=== PATIENT | male | born 1950 | race Caucasian/White ===

== ENCOUNTER 2019-10-09 08:50 | Emergency (ER) | payer MEDICARE, OTHER ==
[~2019-10-09] VITALS: Ht 180.3 cm; Wt 85.8 kg
--- NOTE | 2019-10-09 09:18 | EKG ---
[address] [address] Test Date: 2019-10-09 Test Time: 09:11:38 Pat Name: MO CARRINGTON Department: Room: Gender: M Line Fisher: : 1950 Requested By: MIKALA LUCAS Order Number: [id number] Reading MD: Cameron Leonardo MD Measurements Intervals [place] Rate: 80 P: 70 MN: 194 QRS: 95 QRSD: 108 T: 49 QT: 378 QTc: 440 Interpretive Statements SINUS RHYTHM VENTRICULAR PREMATURE COMPLEX(ES) Electronically Signed On 10-09-2019 9:50:44 CDT by Cameron Leonardo MD
--- NOTE | 2019-10-09 09:19 | PHYS DOC ---
General Adult EDM: Chief Complaint: HYPERTENSION HPI: HPI: 69-year-old male presents with elevated blood pressure. Patient woke up this morning around 4 AM with some chest pressure. He took his blood pressure and it was in the high 180s over 90s. He realized that he forgot to take his blood pressure medicine last night which includes metoprolol. He also takes isosorbide mononitrate. He took 1 nitro pill and the pain subsided. Couple hours later the pain was creeping back and so he took a second nitro and called his primary physician. His blood pressure has increased again to upper 180s and so they advised that he come in for evaluation. Patient had open heart surgery for a 5 vessel bypass 2 years ago. He has been doing well since that time. He denies diaphoresis or shortness of breath. No fever or chills. At this time, his chest pain is gone and is just concerned about the blood pressure. Review of Systems: Review of Systems: Constitutional: Denies fever or chills Eyes: Denies change in visual acuity HENT: Denies nasal congestion or sore throat Respiratory: Denies cough or shortness of breath Cardiovascular: Elevated blood pressure. Denies chest pain or edema GI: Denies abdominal pain, nausea, vomiting, bloody stools or diarrhea : Denies dysuria Musculoskeletal: Denies back pain or joint pain Integument: Denies rash Neurologic: Denies headache, focal weakness or sensory changes Endocrine: Denies polyuria or polydipsia Lymphatic: Denies swollen glands Psychiatric: Denies depression or anxiety Heart Score: Risk Factors: Risk Factors: DM, Current or recent (<one month) smoker, HTN, HLP, family history of CAD, obesity. Risk Scores: Score 0 - 3: 2.5% MACE over next 6 weeks - Discharge Home Score 4 - 6: 20.3% MACE over next 6 weeks - Admit for Clinical Observation Score 7 - 10: 72.7% MACE over next 6 weeks - Early Invasive Strategies Allergies: Allergies: Allergies Coded Allergies Type Severity Reaction Last Updated Verified niacin Allergy Unknown Swelling 10/09/19 Yes Physical Exam: PE: Constitutional: Well developed, well nourished, no acute distress, non-toxic appearance. [] HENT: Normocephalic, atraumatic, bilateral external ears normal, oropharynx moist, no oral exudates, nose normal. [] Eyes: PERRLA, EOMI, conjunctiva normal, no discharge. [] Neck: Normal range of motion, no tenderness, supple, no stridor. [] Cardiovascular: Heart rate regular rhythm, no murmur [] Lungs & Thorax: Bilateral breath sounds clear to auscultation [] Abdomen: Bowel sounds normal, soft, no tenderness, no masses, no pulsatile masses. [] Skin: Well-healed scar of the right lower extremity and central chest [] Back: No tenderness, no CVA tenderness. [] Extremities: No tenderness, no cyanosis, no clubbing, ROM intact, no edema. [] Neurologic: Alert and oriented X 3, normal motor function, normal sensory function, no focal deficits noted. [] Psychologic: Affect normal, judgement normal, mood normal. [] EKG: EKG: Sinus rhythm, rate 80, normal axis, no ST elevations or depressions. [] Radiology/Procedures: Radiology/Procedures: [] Impressions: Single AP view of the chest. Comparison: None. Indication: Chest pain Findings: Sternotomy wires and CABG clips are identified. The heart is not enlarged. There is no pneumothorax or effusion. No air space or interstitial disease. Impression: 1. No acute cardiopulmonary process. Electronically signed by: Joe Kenney MD (10/09/2019 9:29 AM) [id number] DICTATED AND SIGNED BY: JOE KENNEY MD DATE: 10/09/19 0929 CC: MIKALA LUCAS DO; JET SMART ~ Course & Med Decision Making: Course & Med Decision Making Pertinent Labs and Imaging studies reviewed. (See chart for details) The patient's labs are unremarkable. His EKG is unremarkable. His troponin is negative. His chest x-ray is negative for acute findings. His blood pressure has improved to 135/74 without intervention. Patient continues to be pain-free. He is stable for discharge at this time. [] Dragon Disclaimer: Dragon Disclaimer: This electronic medical record was generated, in whole or in part, using a voice recognition dictation system. Departure Departure: Impression: Primary Impression: Hypertension Qualified Codes: I10 - Essential (primary) hypertension Disposition: 01 HOME/RESIDENCE PRIOR TO ADM Condition: IMPROVED Referrals: JET SMART (PCP) Patient Instructions: Hypertension, [id number] Justification of Admission: Justification of Admission: Justification of Admission Dx: N/A MIKALA LUCAS DO Oct 09, 2019 09:19
--- NOTE | 2019-10-09 09:32 | RAD ---
Single AP view of the chest. Comparison: None. Indication: Chest pain Findings: Sternotomy wires and CABG clips are identified. The heart is not enlarged. There is no pneumothorax or effusion. No air space or interstitial disease. Impression: 1. No acute cardiopulmonary process. Electronically signed by: Dimas Yap MD (10/09/2019 9:29 AM) [id number]
[2019-10-09 09:34] LABS: BASO % 1 % (0-3); EOS # 0.1 x10^3/uL (0.0-0.7); EOS % 1 % (0-3); HEMATOCRIT 43.3 % (39.0-53.0); HEMOGLOBIN 14.5 g/dL (13.0-17.5); LYMPH # 1.4 x10^3/uL (1.0-4.8); LYMPH % 23 % (24-48); MEAN CORPUSCULAR HEMOGLOBIN 31 pg (25-35); MEAN CORPUSCULAR HGB CONC 34 g/dL (31-37); MEAN CORPUSCULAR VOLUME 91 fL (79-100); MONO # 0.4 x10^3/uL (0.0-1.1); MONO % 7 % (0-9); NEUT # 4.3 x10^3uL (1.8-7.7); NEUT % 69 % (31-73); PLATELET COUNT 194 x10^3/uL (140-400); RED BLOOD COUNT 4.75 x10^6/uL (4.30-5.70); RED CELL DISTRIBUTION WIDTH 13.4 % (11.5-14.5); WHITE BLOOD COUNT 6.3 x10^3/uL (4.0-11.0)
[2019-10-09 10:09] LABS: CALCIUM 8.7 mg/dL (8.5-10.1); GFR 74.5; POTASSIUM 3.8 mmol/L (3.5-5.1)
[2019-10-09 10:13] LABS: ALBUMIN 3.6 g/dL (3.4-5.0); ALBUMIN/GLOBULIN RATIO 1.2 (1.0-1.7); TOTAL BILIRUBIN 0.7 mg/dL (0.2-1.0); TOTAL PROTEIN 6.6 g/dL (6.4-8.2)
[2019-10-09 10:31] VITALS: BP 140/70
== END 2019-10-09 10:31 | disposition home or self-care (01) ==
LOC: ER 08:50
DX: I10 Essential (primary) hypertension (principal); Z88.1 Allergy status to other antibiotic agents
CPT/HCPCS: 36415; 71045; 80053; 83880; 84484; 85025; 93005; 99285

== ENCOUNTER 2021-01-20 23:18 | Emergency (ER) | payer MEDICARE, OTHER ==
[~2021-01-20] VITALS: Ht 180.3 cm; Wt 89.1 kg
[2021-01-21] MEDS: LIDOCAINE 2% JELLY 6ML IN APPLICATOR. MM ONE (00:08)
[2021-01-21] MEDS: ACETAMINOPHEN 500 MG TABLET PO ONE (00:08)
--- NOTE | 2021-01-21 00:21 | RAD ---
EXAM: 2 views of the right elbow DATE: 01/20/2021 12:06 AM INDICATION: Reason: fall with deep Lac / Spl. Instructions: / History: COMPARISON: No Prior FINDINGS/ IMPRESSION: No elbow joint effusion. No acute fracture or dislocation. Moderate soft tissue irregularity at the d orsal aspect of the proximal forearm consistent with provided history of laceration. Electronically signed by: Jerry Romero MD (01/21/2021 12:18 AM) LUCIA
--- NOTE | 2021-01-21 01:04 | PHYS DOC ---
Past History Past Medical History: CAD, High Cholesterol, Hypertension Past Surgical History: Knee Replacement, Other Additional Past Surgical Histo: CABG -5 vessel bypass Alcohol Use: Rarely Adult General Chief Complaint Chief Complaint: LACERATION/AVULSION HPI HPI Patient is a 70-year-old male, otherwise healthy, up-to-date on his tetanus vaccination who presents to the emergency department with a right forearm laceration that happened at home when he hit it on the corner of a cabinet about an hour before coming to the emergency department. Denies any other injuries. States he did not take any medications. Review of Systems Review of Systems Review of systems otherwise unremarkable except noted in HPI Current Medications Current Medications Current Medications Medications (Trade) Dose Ordered Sig/Stevie Start Time Stop Time Status Last Admin Dose Admin Acetaminophen (Tylenol) 1,000 mg 1X ONCE 01/21/21 00:30 01/21/21 00:31 DC 01/21/21 00:08 1,000 MG Lidocaine HCl (Glydo (Lidocaine) Jelly) 1 will 1X ONCE 01/21/21 00:30 01/21/21 00:31 DC 01/21/21 00:08 1 WILL Allergies Allergies Allergies Coded Allergies Type Severity Reaction Last Updated Verified niacin Allergy Unknown Swelling 10/09/19 Yes Physical Exam Physical Exam Constitutional: Well developed, well nourished, no acute distress, non-toxic appearance. [] HENT: Normocephalic, atraumatic, bilateral external ears normal, oropharynx moist, no oral exudates, nose normal. [] Skin: Warm, dry, no erythema, no rash. [] Extremities: 6 cm, linear laceration on the medial posterior forearm, bleeding controlled, no muscle or tendon shock, neurovascular exam intact., ROM intact, no edema. [] Neurologic: Alert and oriented X 3, no focal deficits noted. [] Psychologic: Affect normal, judgement normal, mood normal. [] Current Patient Data Vital Signs Vital Signs Date Time Temp Pulse Resp B/P (MAP) Pulse Ox O2 Delivery O2 Flow Rate FiO2 01/20/21 23:55 98.4 80 18 160/80 (106) 99 Room Air EKG EKG [] Radiology/Procedures Radiology/Procedures []echnique: Noncontrast CT imaging was performed of the head. Exposure: One or more of the following individualized dose reduction techniques were utilized for this examination: 1. Automated exposure control 2. Adjustment of the mA and/or kV according to patient size 3. Use of iterative reconstruction technique. Findings: No intracranial hemorrhage. No mass effect. No hydrocephalus. Mild brain parenchymal volume loss. Moderate foci of decreased attenuation within the hemispheric white matter, most often due to chronic microvascular ischemia. Chronic left parietal, right frontal and left cerebellar infarcts. Imaged orbits are unremarkable. Imaged paranasal sinuses and mastoid air cells are clear. No acute calvarial fracture. Impression: 1. No acute intracranial abnormality. 2. Multifocal chronic infarcts. 6 cm linear laceration on medial posterior elbow, hemostasis achieved. Cleaned wound with sterile water. L ET placed for topical anesthesia. Anesthesia achieved. Washed wound again. 6 sutures placed of 3-0 Ethilon. Patient malick ated well. Bandaged. Heart Score C/O Chest Pain: No Risk Factors: Risk Factors: DM, Current or recent (<one month) smoker, HTN, HLP, family history of CAD, obesity. Risk Scores: Risk Factors: DM, Current or recent (<one month) smoker, HTN, HLP, family history of CAD, obesity. Course & Med Decision Making Course & Med Decision Making Patient is a 70-year-old male that presents with a forearm laceration Vital signs not concerning. Physical exam noted above. Given pain medicine and topical LET for anesthesia Imaging not concerning. Cleaned and suture repaired. Patient tolerated well. Cleaned and bandaged. Discussed all findings with patient. Advised to follow-up with primary care in 7 to 10 days for suture repair and wound check. Gave return precautions to the ED. Patient grateful, verbalized understanding and agreed with plan of discharge. [] Dragon Disclaimer Dragon Disclaimer This electronic medical record was generated, in whole or in part, using a voice recognition dictation system. Departure Departure: Impression: Primary Impression: Laceration Disposition: 01 HOME / SELF CARE / HOMELESS Condition: GOOD Referrals: JET SMART (PCP) Patient Instructions: Laceration Care, Adult Additional Instructions: Thanks for coming into the emergency department tonight and allowing us to take care of you. Please read the attached information carefully to go back over things we discussed. You can use Tylenol, ibuprofen and ice as needed. Please keep the area clean, dry and bandaged as we discussed and do not submerge the wound in water for greater than 24 hours. You must follow-up with your primary care physician in 7 to 10 days for a wound check and suture removal. If you are unable to get in you can come back to the emergency department for this process. Please come back with new or concerning symptoms as discussed. ADELINA CHAMORRO MD Jan 21, 2021 01:04
[2021-01-21] MEDS: oxyCODONE/APAP 5/325 1 TAB TABLET PO ONE (01:28)
[2021-01-21] MEDS: LIDOCAINE/EPI/TETRACAINE TOPICAL GEL 3 ML. TP ONE (01:28)
[2021-01-21 02:30] VITALS: BP 129/72
== END 2021-01-21 02:36 | disposition home or self-care (01) ==
LOC: ER 23:18
DX: S51.811A Laceration without foreign body of right forearm, initial encounter (principal); I25.810 Atherosclerosis of coronary artery bypass graft(s) without angina pectoris; E78.00 Pure hypercholesterolemia, unspecified; I10 Essential (primary) hypertension; Z88.1 Allergy status to other antibiotic agents; W22.8XXA Striking against or struck by other objects, initial encounter; Y93.89 Activity, other specified; Y92.89 Other specified places as the place of occurrence of the external cause; Y99.8 Other external cause status
CPT/HCPCS: 12002; 73070; 99284